=== PATIENT | female | born 1980 ===

== ENCOUNTER 2025-05-14 14:24 | Emergency (ER) | payer SELFPAY ==
[~2025-05-14] VITALS: Ht 162.6 cm; Wt 49.1 kg
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
[2025-05-14 16:01] VITALS: BP 111/64; PULSE 96; RESP 18; O2SAT 98
[2025-05-14 18:29] VITALS: TEMP 98.3
== END 2025-05-14 18:30 | disposition left against medical advice (07) ==
LOC: ER 14:25 → EEVIPCON 14:25 → ER 18:30
DX: S40.021A Contusion of right upper arm, initial encounter (principal); S80.01XA Contusion of right knee, initial encounter; Z91.048 Other nonmedicinal substance allergy status; Y08.89XA Assault by other specified means, initial encounter; Y93.89 Activity, other specified; Y92.89 Other specified places as the place of occurrence of the external cause; Y99.8 Other external cause status
CPT/HCPCS: 99282